=== PATIENT | male | born 1995 | race Caucasian/White ===

== ENCOUNTER 2021-07-29 21:16 | Emergency (ER) | payer SELFPAY ==
[~2021-07-29] VITALS: Ht 172.7 cm; Wt 91.0 kg
[2021-07-29] MEDS ORDERED: HYDROCODONE/ACETAMINOPHEN 5/325MG TABLET PO STA (23:39)
[2021-07-30 00:03] VITALS: BP 123/78
[2021-07-30] MEDS ORDERED: IBUP-2029 PO (01:10)
== END 2021-07-30 01:41 | disposition home or self-care (01) ==
LOC: ER 21:16
DX: S62.101A Fracture of unspecified carpal bone, right wrist, initial encounter for closed fracture (principal); S63.591A Other specified sprain of right wrist, initial encounter; W17.89XA Other fall from one level to another, initial encounter; Y93.39 Activity, other involving climbing, rappelling and jumping off; Y92.9 Unspecified place or not applicable
CPT/HCPCS: 29125; 73110; 99283; A4565